=== PATIENT | female | born 1965 | race Caucasian/White ===

== ENCOUNTER 2017-05-16 05:44 | Day surgery (SDC) | payer OTHER ==
[2017-05-16] MEDS ORDERED: LACTATED RINGERS 1,000 ML ONE (06:48)
[2017-05-16] MEDS ORDERED: LIDOCAINE 1% 10 ML VIAL INJ ONE (07:00)
[2017-05-16] MEDS ORDERED: PROPOFOL 200 MG/20 ML VIAL IV ONE (07:00)
[2017-05-16] MEDS ORDERED: MIDAZOLAM INJ 2 MG/2 ML VIAL ONE (07:33)
[2017-05-16] MEDS ORDERED: fentaNYL CITRATE INJ 50 MCG/ML AMP ONE (07:33)
[2017-05-16 08:40] VITALS: O2SAT 100
[2017-05-16 08:58] VITALS: BP 95/69; TEMP 97.1
--- NOTE | 2017-05-16 09:12 | OP ---
DATE OF PROCEDURE: 05/16/17 INDICATION: Greater than ten years since last colonoscopy and age greater than 50. PREOPERATIVE DIAGNOSIS: 1. Family history of colon cancer in a patient with no previous colonoscopy. POSTOPERATIVE DIAGNOSIS: 1. Colonoscopy completed to the cecum with good visualization of the Ileocecal valve. 2. Poor, but adequate prep. 3. Sigmoid diverticulosis, moderate. 4. Distal sigmoid polyp, 4 to 6 mm in size, biopsied and completely obliterated with the straight forceps biopsy with multiple bites taken. 5. Proximal rectal polyp, 6 mm in size, biopsied with straight forceps biopsy and felt to be obliterated with multiple biopsies taken. Good hemostasis noted. 6. Another proximal rectal polyp, again approximately 6 mm in size that was destroyed with straight forceps biopsy with good hemostasis noted. PROCEDURE: 1. Colonoscopy. SURGEON: Luis Felipe Perez MD ANESTHESIA: Per Javier Marley CRNA. COMPLICATIONS: None apparent. ESTIMATED BLOOD LOSS: Less than 10 mL. TECHNIQUE: The patient was brought to the GI lab and laid in the left lateral decubitus position. Digital rectal exam was performed. No masses were palpated. A small external hemorrhoid was noted. The colonoscope was advanced into the rectum and very cautiously through to the cecum. The cecum was visualized and appeared normal. The ileocecal valve was visualized, but not cannulated although attempts were made. The prep was noted throughout the scope to be fair. There was some dark stool material, but it was liquidy and for the most part we were able to suction that out and get good visualization. The scope was gradually withdrawn back through the ascending colon with good visualization of the ascending colon and no abnormalities noted. The scope was withdrawn through the transverse colon, which appeared normal, back into the descending colon, which appeared normal, into the sigmoid colon. In the sigmoid colon, a moderate amount of diverticula were noted. In the distal sigmoid colon, a polyp on a fold was noted and this was biopsied several times with straight forceps biopsy and felt to be adequately destroyed with good hemostasis. The scope was withdrawn then on into the rectum where two additional polyps were noted. Both were about 6 mm in size and both were obliterate with the straight forceps biopsy with good hemostasis achieved. The scope was withdrawn further to about 15 cm and retroflexion was attempted several times, but it was very difficult. It was a tight area and we could not get the scope to retroflex. After a couple of attempts, we decided to just withdraw slowly and I do feel like we had good visualization of the rectal area and the distal rectal area as well with no polyps or masses noted. The scope was withdrawn. The patient tolerated the procedure well. There were no obvious complications. DISPOSITION: The patient will be discharged home when she is cleared from anesthesia standpoint. Due to her family history of colon cancer at a young age , the polyps that we found and the fact that the prep was not stellar, I would recommend she have another colonoscopy within five years. #[id number] [facility]
== END 2017-05-16 09:55 | disposition home or self-care (01) ==
LOC: AMB 05:44
PROVIDERS: ATTEND Family Medicine
DX: Z12.11 Encounter for screening for malignant neoplasm of colon (principal); D12.5 Benign neoplasm of sigmoid colon; D12.7 Benign neoplasm of rectosigmoid junction; K57.30 Diverticulosis of large intestine without perforation or abscess without bleeding; K59.00 Constipation, unspecified; E66.9 Obesity, unspecified; Z85.038 Personal history of other malignant neoplasm of large intestine
CPT/HCPCS: 00810; 45380; J2250; J3010; J3490; J7120

== ENCOUNTER → 2018-02-20 | Outpatient (CLI) | payer BC, OTHER | LOC: GMAJS 10:05 | PROVIDERS: ATTEND Physician Assistant | DX: M25.552 Pain in left hip (principal) ==

== ENCOUNTER → 2018-03-14 | Outpatient (CLI) | payer BC ==
--- NOTE | 2018-03-14 14:04 | MRI ---
MRI left hip without contrast INDICATION: Hip pain arthritis chronic pain worsening TECHNIQUE: Noncontrast MR imaging left hip FINDINGS: Scattered sigmoid diverticula. Degenerative changes in both hips with mild osteoarthrosis and ossicles along the anterior superior acetabulum the on the coronal T1 images. Mild over coverage as well suggesting possible pincer-type impingement. No osteonecrosis or fracture. There are cystic changes in the anterior superior acetabulum left hip as well. Mild bilateral greater trochanteric bursal edema. There is interstitial tendinosis and fissuring of the gluteal tendons without complete rupture or retraction. There is evidence of grade 4 chondrosis overlying the area cystic change in the anterior superior acetabulum. Fraying of the anterior superior labrum in the area of the ossicles. No osteonecrosis or fracture. Indistinct ligamentum teres. Small simple appearing cyst in the right adnexa measuring 2.4 cm in longest axis without solid component. 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
== END ==
LOC: MRI 09:48
PROVIDERS: ATTEND Family Medicine
DX: M16.0 Bilateral primary osteoarthritis of hip (principal); R60.0 Localized edema

== ENCOUNTER 2018-03-28 05:36 | Day surgery (SDC) | payer BC ==
[2018-03-28] MEDS ORDERED: LACTATED RINGERS 1,000 ML ONE (06:05)
[2018-03-28] MEDS ORDERED: methylPREDNISolone ACETATE 80 MG/ML VIAL ONE (07:51)
[2018-03-28] MEDS ORDERED: LIDOCAINE 1% W/ EPINEPHRINE 20 ML VIAL INJ ONE (07:51)
[2018-03-28] MEDS ORDERED: BUPIVACAINE 0.25% INJ 30 ML VIAL INJ ONE (07:51)
[2018-03-28] MEDS ORDERED: fentaNYL CITRATE INJ 50 MCG/ML AMP ONE (09:23)
[2018-03-28] MEDS ORDERED: PROPOFOL 200 MG/20 ML VIAL IV ONE (10:00)
[2018-03-28] MEDS ORDERED: LIDOCAINE 1% 10 ML VIAL INJ ONE (10:00)
[2018-03-28 10:43] VITALS: BP 114/73; TEMP 96.6; O2SAT 99
--- NOTE | 2018-03-31 08:21 | OP ---
DATE OF PROCEDURE: 03/28/18 PREOPERATIVE DIAGNOSIS: 1. Osteoarthritis of the hip. POSTOPERATIVE DIAGNOSIS: 1. Osteoarthritis of the hip. PROCEDURE: 1. Injection under anesthesia. SURGEON: Ran Osorio MD. DOCTOR OF NURSING PRACTICE: Simba Conway CST, SA-C. ANESTHESIA: Conscious sedation. COMPLICATIONS: None. FINDINGS: Arthritis of the hip. INDICATION: Ms. Posey has a history of pain in the hip that has been getting progressively worse. Unfortunately, she has failed more conservative measures and has requested operative intervention. After discussing the risks, benefits and alternatives to the aforementioned procedure, informed consent was obtained. PROCEDURE: The patient was brought to the Operating Room and placed in supine position. Conscious sedation was administered and the leg was flexed, abducted and externally rotated. The groin was prepped and fluoroscopic imaging was used to confirm needle placement into the hip joint through a medial portal. Once placement had been confirmed, a combination of lidocaine and Depo-Medrol were injected into the joint. After injection, the needle was withdrawn. Pressure was held on the injection site. A sterile band-aid was placed. The patient was then taken back to the Day Surgery Unit. POSTOPERATIVE INSTRUCTIONS: The patient will be weight-bearing as tolerated. The patient will followup with us in approximately 2 weeks. #[id number] [facility]
== END 2018-03-28 10:45 | disposition home or self-care (01) ==
LOC: AMB 05:36
PROVIDERS: ATTEND Orthopaedic Surgery
DX: M16.12 Unilateral primary osteoarthritis, left hip (principal); Z86.010 Personal history of colon polyps; Z79.899 Other long term (current) drug therapy
CPT/HCPCS: 01200; 20610; 76000; 87070; J1030; J3010; J3490; J7120

== ENCOUNTER → 2018-09-23 | Outpatient (CLI) | payer BC | LOC: GMAM 11:19 | PROVIDERS: ATTEND Family Medicine | DX: Z00.00 Encounter for general adult medical examination without abnormal findings (principal) ==

== ENCOUNTER → 2020-03-24 | Outpatient (CLI) | payer BC | LOC: GMAM 11:56 | PROVIDERS: ATTEND Family Medicine | DX: R07.9 Chest pain, unspecified (principal) ==